=== PATIENT | female | born 1975 | race Caucasian/White ===

== ENCOUNTER 2021-03-03 00:44 | Emergency (ER) | payer OTHER ==
[~2021-03-03] VITALS: Ht 172.7 cm; Wt 66.2 kg
[~2021-03-03 00:44] MED LIST: BACLOFEN10 MG PO; EFFEXOR XR150 MG PO; IBUPROFEN800 MG PO; KLONOPIN1 MG PO; LAMOTRIGINE100 MG PO; LYRICA75 MG PO; NORCO 5-325 TA1 EACH PO; POTASSIUM CHLO20 ME1 PO; TYLENOL325 MG PO
--- OUTSIDE RECORDS SUMMARY | 2021-03-03 00:48 | XMS ---
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 E.Nicole VISIT COUNT (12 MO.) 1 [facility] Shank[facility] TOTAL 1 NOTE: Visits indicate total known visits. ED/UCC VISIT TRACKING (12 MO.) 03/03/2021 00:45 [facility] TYPE: Emergency COMPLAINT: - CHEST INJURY INPATIENT VISIT TRACKING (12 MO.) No inpatient visits to display in this time frame [email or web address]
[2021-03-03] MEDS ORDERED: HYDROCODON-ACE1 EA10 PO ×2 (01:03→01:38)
== END 2021-03-03 01:55 | disposition home or self-care (01) ==
LOC: ED 00:44
DX: S20.212A Contusion of left front wall of thorax, initial encounter (principal); W01.198A Fall on same level from slipping, tripping and stumbling with subsequent striking against other object, initial encounter; G43.909 Migraine, unspecified, not intractable, without status migrainosus; F17.200 Nicotine dependence, unspecified, uncomplicated; Z79.899 Other long term (current) drug therapy
CPT/HCPCS: 71101; 99283-25

== ENCOUNTER 2021-03-24 14:16 | Emergency (ER) | payer OTHER ==
[~2021-03-24] VITALS: Ht 172.7 cm; Wt 66.2 kg
[~2021-03-24 14:16] MED LIST changes: +HYDROCODON-ACE1 EA10 PO
--- OUTSIDE RECORDS SUMMARY | 2021-03-24 14:18 | XMS ---
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 Javi VISIT COUNT ([address] [facility] TOTAL 2 NOTE: Visits indicate total known visits. ED/UCC VISIT TRACKING (12 MO.) 03/24/2021 14:[address] [facility] TYPE: Emergency COMPLAINT: - RIB, CHEST PAIN/ INJ 03/03/2021 00:[address] [facility] TYPE: Emergency COMPLAINT: - CHEST INJURY DIAGNOSES: - Contusion of left front wall of thorax, initial encounter - Other middle or intermediate school principal (current) drug therapy - Fall on same level from slipping, tripping and stumbling with subsequent striking against other object, initial encounter - Migraine, unspecified, not intractable, without status migrainosus - Nicotine dependence, unspecified, uncomplicated INPATIENT VISIT TRACKING (12 MO.) No inpatient visits to display in this time frame [email or web address]
[2021-03-24] MEDS ORDERED: HYDROCODON-ACE1 EA10 PO (15:44)
== END 2021-03-24 15:54 | disposition home or self-care (01) ==
LOC: ED 14:16
DX: R07.89 Other chest pain (principal); G43.909 Migraine, unspecified, not intractable, without status migrainosus; F17.200 Nicotine dependence, unspecified, uncomplicated; Z79.899 Other long term (current) drug therapy
CPT/HCPCS: 71046; 99283-25